=== PATIENT | female | born 1955 | race Caucasian/White ===

== ENCOUNTER 2024-02-24 14:26 | Inpatient (IN) | payer BC, MEDICARE, MEDICAID ==
[~2024-02-24] VITALS: Ht 165.1 cm; Wt 56.8 kg
[2024-02-24] MEDS ORDERED: CALCTAB41 PO (14:46)
[2024-02-24] MEDS: LIDOCAINE VISCOUS 2% SOLN 15ML UDC SS ONE (16:25)
[2024-02-24 18:14] LABS: BASO # 0.1 10^3/uL (0.0-0.2); BASO % 0.3 % (0.0-1.0); HEMATOCRIT 45.5 % (36.0-47.0); LYMPH # 0.7 10^3/uL (1.5-5.0); LYMPH % 3.6 % (24.0-44.0); MEAN CORPUSCULAR HEMOGLOBIN 29.9 pg (27.0-33.0); MEAN CORPUSCULAR VOLUME 90.8 fl (80.0-96.0); MONO # 0.7 10^3/uL (0.0-0.8); NEUTROPHILS # 16.3 10^3/uL (1.5-8.5); NEUTROPHILS % 91.7 % (36.0-66.0); PLATELET COUNT, AUTOMATED 315 10^3/uL (150-450); RED BLOOD COUNT 5.01 10^6/uL (4.00-5.40); WHITE BLOOD COUNT 17.8 10^3/uL (4.0-10.0)
[2024-02-24 18:26] LABS: ERYTHROCYTE SEDIMENTATION RATE 66 mm/hr (0-30)
[2024-02-24] MEDS: AMPICILLIN SOD/SULBACTAM SOD 3 GM in D5W MINI-BAG PLUS 100 ML IV ONE (18:41)
[2024-02-24] MEDS: dexAMETHasone 20MG/5ML VIAL IV ONE (18:41)
[2024-02-24 18:44] LABS: ALBUMIN 3.8 G/DL (3.2-5.2); ALKALINE PHOSPHATASE 80 U/L (46-116); ALT/SGPT 39 U/L (7.0-40); AST/SGOT 24 U/L (<34); BILIRUBIN,DIRECT 0.4 MG/DL (<0.4); BILIRUBIN,TOTAL 1.1 MG/DL (0.3-1.2); BLOOD UREA NITROGEN 11 MG/DL (9-23); CALCIUM LEVEL 9.4 MG/DL (8.3-10.6); CARBON DIOXIDE LEVEL 26 MMOL/L (20-31); CHLORIDE LEVEL 104 MMOL/L (98-107); CREATININE FOR GFR 0.69 MG/DL (0.55-1.30); GLOMERULAR FILTRATION RATE > 60.0 (>45); GLUCOSE, FASTING 109 MG/DL (74-106); POTASSIUM SERUM 4.2 MMOL/L (3.5-5.1); SODIUM LEVEL 138 MMOL/L (136-145); TOTAL PROTEIN 7.3 G/DL (5.7-8.2)
[2024-02-24 18:50] LABS: PROCALCITONIN 0.09 ng/ml
[2024-02-24] MEDS ORDERED: LIDOCAINE VISCOUS 2% SOLN 15ML UDC MT PRN (20:45)
[2024-02-24] MEDS ORDERED: MORPHINE 2 MG/ML 1ML VIAL IV PRN (20:45)
[2024-02-24] MEDS ORDERED: ACETAMINOPHEN TAB 650MG DOSE (2X325MG) PO PRN (20:45)
[2024-02-24] MEDS: NS 1,000 ML IV SCH (20:55)
[2024-02-24] MEDS ORDERED: PANTOPRAZOLE 40MG TAB (PROTONIX) PO SCH (21:00)
[2024-02-24] MEDS ORDERED: HOME MED LIST COMPLETE! XX SCH (22:25)
[2024-02-24] MEDS ORDERED: AMOX875T2 PO (22:25)
[2024-02-24] MEDS ORDERED: CALC-358 PO (22:25)
[2024-02-24] MEDS ORDERED: TRAM50TA2 PO (22:25)
[2024-02-24] MEDS: KETOROLAC 30 MG/ML 1ML VIAL IV PRN (23:55)
[2024-02-24] MEDS: PANTOPRAZOLE 40MG VIAL IV SCH (23:55)
[2024-02-25] MEDS: AMPICILLIN SOD/SULBACTAM SOD 3 GM in D5W MINI-BAG PLUS 100 ML IV SCH (07:00)
[2024-02-25 08:40] VITALS: BP 112/75; TEMP 97.7; O2SAT 95
[2024-02-25] MEDS: ENOXAPARIN 40MG/0.4ML SYRINGE (J1650 PER 10MG) SC SCH (09:00)
[2024-02-25] MEDS: dexAMETHasone 20MG/5ML VIAL IV SCH (11:00)
[2024-02-25] MEDS ORDERED: PRED10TA2 PO (14:13)
[2024-02-25] MEDS ORDERED: AMOX875T2 PO (14:13)
[2024-02-25] MEDS ORDERED: OMEP40CA4 PO (14:13)
[2024-02-25 17:05] LABS: HEMATOCRIT 37.1 % (36.0-47.0); HEMOGLOBIN 11.9 g/dl (12.0-15.5); MEAN CORPUSCULAR HEMOGLOBIN 29.3 pg (27.0-33.0); MEAN CORPUSCULAR HGB CONC 32.1 g/dl (32.0-36.5); MEAN CORPUSCULAR VOLUME 91.4 fl (80.0-96.0); PLATELET COUNT, AUTOMATED 277 10^3/uL (150-450); RED BLOOD COUNT 4.06 10^6/uL (4.00-5.40); WHITE BLOOD COUNT 16.7 10^3/uL (4.0-10.0)
== END 2024-02-25 16:37 | disposition home or self-care (01) | DRG 115 ==
LOC: M ED 14:26 → M ED INP 20:42 → M MSPAV 02-25 08:38
PROVIDERS: ADMIT Preventive Medicine Undersea and Hyperbaric Medicine; ATTEND Internal Medicine
DX: K11.21 Acute sialoadenitis (principal); K21.9 Gastro-esophageal reflux disease without esophagitis; Z79.891 Long term (current) use of opiate analgesic; Z88.1 Allergy status to other antibiotic agents; Z88.5 Allergy status to narcotic agent